=== PATIENT | male | born 1985 | race Caucasian/White ===

== ENCOUNTER 2024-01-17 14:39 | Emergency (ER) | payer BC ==
[~2024-01-17] VITALS: Ht 193 cm; Wt 140.6 kg
[2024-01-17 15:28] LABS: BASOPHILS % (AUTO) 0.8 % (0-1); EOSINOPHILS # (AUTO) 0.1 X10'3 (0-0.9); EOSINOPHILS % (AUTO) 1.7 % (0-6); HEMATOCRIT 48.1 % (42.0-52.0); HEMOGLOBIN 16.5 g/dl (14.0-17.9); LYMPHOCYTES # (AUTO) 1.7 X10'3 (1.1-4.8); LYMPHOCYTES % (AUTO) 35.2 % (21-51); MEAN CORPUSCULAR HEMOGLOBIN 28.6 PG (27.0-31.0); MEAN CORPUSCULAR HGB CONC 34.2 g/dL (33.0-36.5); MEAN CORPUSCULAR VOLUME 83.5 FL (78-98); MEAN PLATELET VOLUME 9.2 FL (7.4-10.4); MONOCYTES # (AUTO) 0.6 X10'3 (0-0.9); MONOCYTES % (AUTO) 11.4 % (2-12); NEUTROPHILS # (AUTO) 2.5 X10'3 (1.8-7.7); NEUTROPHILS % (AUTO) 50.9 % (42-75); PLATELET COUNT 180 X10'3 (140-440); RED BLOOD COUNT 5.76 X10'6 (4.70-6.10); RED CELL DISTRIBUTION WIDTH 14.5 % (11.5-14.5); WHITE BLOOD COUNT 4.9 X10'3 (4.5-11.0)
[2024-01-17 15:38] LABS: APTT 30 SECONDS (22-32); PROTHROMBIN TIME 10.5 SECONDS (9.0-12.0)
[2024-01-17 15:46] LABS: ALBUMIN 3.8 G/DL (3.4-5.0); ANION GAP 9 (8-16); BLOOD UREA NITROGEN 14 MG/DL (7-18); BUN/CREATININE RATIO 10.9 (10.0-20.0); CALCIUM 9.3 MG/DL (8.5-10.1); CHLORIDE 105 MMOL/L (99-107); CREATININE 1.29 MG/DL (0.60-1.10); GLUCOSE 99 MG/DL (70-104); PRO BRAIN NATRIURETIC PEPTIDE 58 PG/ML (0-125); SODIUM 139 MMOL/L (135-145); eCRCL 93 ML/MIN; eGFR 62 ML/MIN
[2024-01-17 15:51] LABS: FREE T4 (FREE THYROXINE) 1.06 NG/DL (0.73-1.40); PRO BRAIN NATRIURETIC PEPTIDE 60 PG/ML (0-125); THYROID STIMULATING HORMONE 2.65 ulU/ml (0.34-4.50)
[2024-01-17 16:55] LABS: BILIRUBIN,URINE NEGATIVE (Neg); CLARITY,URINE CLEAR (Clear); COLOR,URINE YELLOW (Yellow); GLUCOSE, URINE NEGATIVE (Neg); KETONES,URINE NEGATIVE (Neg); LEUKOCYTE ESTERASE ,URINE NEGATIVE (Neg); NITRITES, URINE NEGATIVE (Neg); OCCULT BLOOD,URINE NEGATIVE (Neg); PROTEIN,URINE NEGATIVE (Neg); UROBILINOGEN,URINE 0.2 E.U/dL (0.2-1.0)
[2024-01-17 16:57] LABS: URINE AMPHETAMINE SCREEN NEGATIVE (Neg); URINE BARBITUATE SCREEN NEGATIVE (Neg); URINE BENZODIAZEPINES SCREEN NEGATIVE (Neg); URINE CANNABINOID SCREEN NEGATIVE (Neg); URINE COCAINE SCREEN NEGATIVE (Neg); URINE METHADONE SCREEN NEGATIVE (Neg); URINE OPIATE SCREEN NEGATIVE (Neg); URINE PHENCYCLIDINE SCREEN NEGATIVE (Neg)
[2024-01-17 17:03] LABS: UA COLLECTION TYPE CLN CATCH MIDSTREAM
[2024-01-17] MEDS: dexamethasone sod phosphate 10mg/ml inj IM STA (17:12)
[2024-01-17] MEDS: ipratropium/albuterol 3ml nebule NEB STA (17:14)
[2024-01-17 17:15] VITALS: PULSE 72; RESP 17; O2SAT 98
[2024-01-17 17:20] VITALS: PULSE 78; RESP 17; O2SAT 99
[2024-01-17 17:38] VITALS: BP 131/84; PULSE 75; RESP 16; TEMP 97.6; O2SAT 98
== END 2024-01-17 17:40 | disposition home or self-care (01) ==
LOC: ER 14:39
DX: R07.89 Other chest pain (principal); J40 Bronchitis, not specified as acute or chronic; R79.89 Other specified abnormal findings of blood chemistry; E03.9 Hypothyroidism, unspecified
CPT/HCPCS: 36415; 71045; 80048; 80305; 81003; 83880; 84439; 84443; 84484; 85025; 85610; 85730; 93005; 94640; 96372; 99285; J1100; 94760

== ENCOUNTER 2024-03-14 08:33 | Emergency (ER) | payer BC ==
[~2024-03-14] VITALS: Ht 193 cm; Wt 143.6 kg
[2024-03-14] MEDS ORDERED: CIPR10DR LEFT EAR (09:56)
[2024-03-14] MEDS ORDERED: AMOX500C2 PO (09:56)
[2024-03-14] MEDS: amoxicillin 250mg capsule PO ONE (10:00)
[2024-03-14 10:05] VITALS: BP 138/86; PULSE 84; RESP 16; TEMP 98.2; O2SAT 98
== END 2024-03-14 10:06 | disposition home or self-care (01) ==
LOC: ER 08:34
DX: H60.8X2 Other otitis externa, left ear (principal); H66.92 Otitis media, unspecified, left ear
CPT/HCPCS: 99283

== ENCOUNTER 2024-05-11 12:58 | Emergency (ER) | payer BC ==
[~2024-05-11] VITALS: Ht 193 cm; Wt 141.0 kg
[2024-05-11 13:16] VITALS: BP 154/84; PULSE 66; RESP 16; O2SAT 97
[2024-05-11] MEDS ORDERED: POLOS EACHEYE (14:53)
[2024-05-11 15:23] VITALS: TEMP 97.9
== END 2024-05-11 15:24 | disposition home or self-care (01) ==
LOC: ER 12:58
DX: S05.01XA Injury of conjunctiva and corneal abrasion without foreign body, right eye, initial encounter (principal); X58.XXXA Exposure to other specified factors, initial encounter; Y93.89 Activity, other specified; Y92.89 Other specified places as the place of occurrence of the external cause; Y99.8 Other external cause status
CPT/HCPCS: 99283